=== PATIENT | female | born 1980 | race Caucasian/White ===

== ENCOUNTER 2018-05-28 19:53 | Inpatient (IN) ==
[2018-05-28] MEDS ORDERED: 0.9 % Sodium Chloride 1,000 ML IVC ONE (20:24)
[2018-05-28 20:42] LABS: Bilirubin,Urine Negative (Negative); Blood,Urine Trace (Negative); Clarity,Urine Clear (Clear); Color,Urine Yellow (Yellow); Glucose,Urine (UA) Normal (Normal); Ketones,Urine Negative (Negative); Leukocyte Esterase,Urine Negative (Negative); Nitrite,Urine Negative (Negative); Protein,Urine Negative (Neg-Trace); Specific Gravity,Urine < 1.005 (1.010-1.025); Urobilinogen,Urine Normal (Normal)
[2018-05-28 20:43] LABS: Bacteria,Urine None Seen per hpf (None-Few); Hyaline Casts,Urine None Seen per lpf (None-Few); RBC,Urine 0-3 per hpf (0-3); Squamous Epithelial Cell,Urine Moderate per lpf (None-Few); WBC,Urine 0-3 per hpf (0-3)
[2018-05-28 20:56] LABS: Amphetamine Screen,Urine Negative ng/mL (Cutoff=1000); Barbiturate Screen,Urine Negative ng/mL (Cutoff=200); Benzodiazepines Screen,Urine Positive ng/mL (Cutoff=200); Cannabinoid Screen,Urine Negative ng/mL (Cutoff = 50); Cocaine Screen,Urine Negative ng/mL (Cutoff= 300); Opiate Screen,Urine Negative ng/mL (Cutoff=300); Phencyclidine Screen,Urine Negative ng/mL (Cutoff=25)
[2018-05-28 21:05] LABS: Basophils # 0.1 K/mcL (0.0-0.2); Basophils % 0.5 %; Eosinophils # 0.2 K/mcL (0.0-0.6); Eosinophils % 1.9 %; Hematocrit 41.2 % (35.3-44.9); Hemoglobin 13.6 g/dL (11.5-15.4); Immature Granulocytes % 0.2 % (0-4); Lymphocytes # 3.5 K/mcL (0.6-4.6); Lymphocytes % 34.4 %; Mean Corpuscular Hemoglobin 29.8 pg (28.0-33.3); Mean Corpuscular Volume 90.2 fL (83.0-100.0); Mean Platelet Volume 9.2 fL (9.4-12.4); Monocytes # 0.7 K/mcL (0.0-1.3); Monocytes % 6.3 %; Neutrophils # 5.8 K/mcL (1.6-8.9); Platelet Count 342 K/mcL (140-400); Red Blood Count 4.57 M/mcL (3.82-4.97); Red Cell Distribution Width 13.4 % (11.5-14.5); Segmented Neutrophils % 56.7 %
[2018-05-28 21:22] LABS: Acetaminophen < 10 mcg/mL (10-20); BUN/Creatinine Ratio 10 (6-26); Blood Urea Nitrogen 7 mg/dL (6-20); Calcium 8.9 mg/dL (8.6-10.3); Carbon Dioxide 19 mEq/L (23-29); Chloride 109 mEq/L (98-107); Ethanol < 10 mg/dL (Less than 10); Glucose 95 mg/dL (70-105); Osmolality,Calculated 284 (280-300); Potassium 3.4 mEq/L (3.5-5.1); Salicylate < 2.5 mg/dL (15.0-30.0); Sodium 138 mEq/L (136-145); eGFR For Non-African Americans > 60 (> 60)
--- NOTE | 2018-05-28 21:29 | Emergency Department Note ---
Disposition Clinical Impression: Dehydration Depression Qualifiers: Depression Type: unspecified Qualified Code(s): F32.9 - Major depressive disorder, single episode, unspecified Disposition: Still a Patient Referrals: NONE,PCP [Primary Care Provider] - General Adult HPI - General Chief complaint: ED General Medical Stated complaint: Psych Time Seen by Provider: 05/28/18 20:05 Source: patient Limitations: no limitations - History of Present Illness Pain Scale: 0 - Related Data Home Medications Medication Instructions Recorded Confirmed LORazepam [Ativan] 1 mg PO TID PRN 07/29/16 09/23/17 Atorvastatin Calcium 80 mg PO HS 09/23/17 09/23/17 Dicyclomine [Bentyl] 20 mg PO QID PRN 09/23/17 09/23/17 Gabapentin [Neurontin] 600 mg PO TID 09/23/17 09/23/17 Omeprazole [PriLOSEC] 20 mg PO DAILY 09/23/17 09/23/17 Paroxetine HCl [Paxil] 40 mg PO DAILY 09/23/17 09/23/17 SUMAtriptan succinate [Imitrex] 25 mg PO Q2H PRN 09/23/17 09/23/17 Topiramate [Topamax] 50 mg PO HS 09/23/17 09/23/17 hydrOXYzine HCl [Hydroxyzine HCl] 25 mg PO Q6H PRN 09/23/17 09/23/17 Previous Rx's Medication Instructions Recorded Oxycodone HCl/Acetaminophen 1 each PO Q6HR PRN #12 tablet 09/23/17 [Percocet 10-325 mg Tablet] Albuterol Sulfate [Albuterol 2 puff IH Q4HR #1 unit 02/05/18 Inhaler] Allergies Allergy/AdvReac Type Severity Reaction Status Date / Time sulfamethoxazole Allergy Swelling Verified 09/23/17 07:01 [From Bactrim] of Lip/Tongue/Throat trimethoprim [From Bactrim] Allergy Swelling Verified 09/23/17 07:01 of Lip/Tongue/Throat Past Medical History - Past Medical History Medical history: Reports: GERD, hyperlipidemia, kidney stones, other Surgical history: Reports: other (tubal ligation, multiple back surgeries) Psychiatric history: Reports: anxiety, bipolar, 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 - Social History Smoking Status: Current every day smoker Smokeless Tobacco Status: No Alcohol use: Reports: rarely Drug use: Reports: none Physical Exam - General Limitations: no limitations General appearance: alert, in no apparent distress Course Vital Signs Temperature 98.3 F 05/28/18 19:57 Pulse Rate 102 05/28/18 19:57 Respiratory Rate 12 05/28/18 19:57 Blood Pressure 90/60 05/28/18 19:57 O2 Sat by Pulse Oximetry 99 05/28/18 19:57 Temperature 98.3 F 05/28/18 20:10 Pulse Rate 86 05/28/18 21:05 Respiratory Rate 16 05/28/18 21:05 Blood Pressure 100/66 05/28/18 21:05 O2 Sat by Pulse Oximetry 97 05/28/18 21:05 Oxygen Delivery Oxygen Delivery Room Air Medical Decision Making - Lab Data Result diagrams: 05/28/18 20:44 05/28/18 20:44 Lab Results 05/28/18 05/28/18 05/28/18 Range/Units 20:29 20:29 20:29 WBC (4.3-11.1) K/mcL RBC (3.82-4.97) M/mcL Hgb (11.5-15.4) g/dL Hct (35.3-44.9) % MCV (83.0-100.0) fL MCH (28.0-33.3) pg MCHC (31.6-35.5) g/dL RDW (11.5-14.5) % Plt Count (140-400) K/mcL MPV (9.4-12.4) fL Immature Gran % (0-4) % Seg Neutrophils % % Lymphocytes % % Monocytes % % Eosinophils % % Basophils % % Neutrophils # (1.6-8.9) K/mcL Lymphocytes # (0.6-4.6) K/mcL Monocytes # (0.0-1.3) K/mcL Eosinophils # (0.0-0.6) K/mcL Basophils # (0.0-0.2) K/mcL Sodium (136-145) mEq/L Potassium (3.5-5.1) mEq/L Chloride (98-107) mEq/L Carbon Dioxide (23-29) mEq/L BUN (6-20) mg/dL Creatinine (0.60-1.20) mg/dL Est GFR ( Amer) (> 60) Est GFR (Non-Af Amer) (> 60) BUN/Creatinine Ratio (6-26) Glucose (70-105) mg/dL Calculated Osmolality (280-300) Calcium (8.6-10.3) mg/dL Urine Color Yellow (Yellow) Urine Clarity Clear (Clear) Urine pH 6.0 (5.0-8.0) pH Units Ur Specific [place] < 1.005 L (1.010-1.025) Urine Protein Negative (Neg-Trace) mg/dL Urine Glucose (UA) Normal (Normal) mg/dL Urine Ketones Negative (Negative) mg/dL Urine Blood Trace H (Negative) Urine Nitrite Negative (Negative) Urine Bilirubin Negative (Negative) Urine Urobilinogen Normal (Normal) mg/dL Ur Leukocyte Esterase Negative (Negative) Urine Microscopic RBC 0-3 (0-3) per hpf Urine Microscopic WBC 0-3 (0-3) per hpf Ur Squamous Epith Cells Moderate H (None-Few) per lpf Urine Bacteria None Seen (None-Few) per hpf Hyaline Casts None Seen (None-Few) per lpf Urine Test Negative (Negative) Salicylates (15.0-30.0) mg/dL Urine Opiates Screen Negative (Kvfmgk=955) ng/mL Acetaminophen (10-20) mcg/mL Ur Barbiturates Screen Negative (Mmqzfb=699) ng/mL Ur Phencyclidine Scrn Negative (Cutoff=25) ng/mL Ur Amphetamines Screen Negative (Wkehxw=5821) ng/mL U Benzodiazepines Scrn Positive H (Tegcvb=223) ng/mL Urine Cocaine Screen Negative (Cutoff= 300) ng/mL U Marijuana (THC) Screen Negative (Cutoff = 50) ng/mL Ur Drug Screen Interp See Below Ethyl Alcohol (Less than 10) mg/dL 05/28/18 05/28/18 Range/Units 20:44 20:44 WBC 10.3 (4.3-11.1) K/mcL RBC 4.57 (3.82-4.97) M/mcL Hgb 13.6 (11.5-15.4) g/dL Hct 41.2 (35.3-44.9) % MCV 90.2 (83.0-100.0) fL MCH 29.8 (28.0-33.3) pg MCHC 33.0 (31.6-35.5) g/dL RDW 13.4 (11.5-14.5) % Plt Count 342 (140-400) K/mcL MPV 9.2 L (9.4-12.4) fL Immature Gran % 0.2 (0-4) % Seg Neutrophils % 56.7 % Lymphocytes % 34.4 % Monocytes % 6.3 % Eosinophils % 1.9 % Basophils % 0.5 % Neutrophils # 5.8 (1.6-8.9) K/mcL Lymphocytes # 3.5 (0.6-4.6) K/mcL Monocytes # 0.7 (0.0-1.3) K/mcL Eosinophils # 0.2 (0.0-0.6) K/mcL Basophils # 0.1 (0.0-0.2) K/mcL Sodium 138 (136-145) mEq/L Potassium 3.4 L (3.5-5.1) mEq/L Chloride 109 H (98-107) mEq/L Carbon Dioxide 19 L (23-29) mEq/L BUN 7 (6-20) mg/dL Creatinine 0.72 (0.60-1.20) mg/dL Est GFR ( Amer) > 60 (> 60) Est GFR (Non-Af Amer) > 60 (> 60) BUN/Creatinine Ratio 10 (6-26) Glucose 95 (70-105) mg/dL Calculated Osmolality 284 (280-300) Calcium 8.9 (8.6-10.3) mg/dL Urine Color (Yellow) Urine Clarity (Clear) Urine pH (5.0-8.0) pH Units Ur Specific [place] (1.010-1.025) Urine Protein (Neg-Trace) mg/dL Urine Glucose (UA) (Normal) mg/dL Urine Ketones (Negative) mg/dL Urine Blood (Negative) Urine Nitrite (Negative) Urine Bilirubin (Negative) Urine Urobilinogen (Normal) mg/dL Ur Leukocyte Esterase (Negative) Urine Microscopic RBC (0-3) per hpf Urine Microscopic WBC (0-3) per hpf Ur Squamous Epith Cells (None-Few) per lpf Urine Bacteria (None-Few) per hpf Hyaline Casts (None-Few) per lpf Urine Test (Negative) Salicylates < 2.5 L (15.0-30.0) mg/dL Urine Opiates Screen (Eqqevf=688) ng/mL Acetaminophen < 10 L (10-20) mcg/mL Ur Barbiturates Screen (Mdgdhi=192) ng/mL Ur Phencyclidine Scrn (Cutoff=25) ng/mL Ur Amphetamines Screen (Jucrpx=4380) ng/mL U Benzodiazepines Scrn (Xzlmip=012) ng/mL Urine Cocaine Screen (Cutoff= 300) ng/mL U Marijuana (THC) Screen (Cutoff = 50) ng/mL Ur Drug Screen Interp Ethyl Alcohol < 10 (Less than 10) mg/dL Attestation Statement - Attestation Attestation: I examined this patient and my medical decision-making was reviewed with the Resident Physician. I agree with the documented findings, disposition and treatment plan as described except to the extent set forth below. 38 year old female presents to the ED with complaints of pysch complaints and state that her daughter is SI and at home and she has been feeling increasingly more helpless and hopeless and anxious at bedside. She was intially tachycardiac and hypotensive on presentation and appears dehydrated. we have given her IV 1L and she has improved to HR of 80s and no 100/60s. She has otherwise been medically cleared and will now await pysch consult
--- NOTE | 2018-05-28 21:49 | Emergency Department Note ---
Disposition Clinical Impression: Dehydration Depression Qualifiers: Depression Type: unspecified Qualified Code(s): F32.9 - Major depressive disorder, single episode, unspecified Disposition: Still a Patient Referrals: NONE,PCP [Primary Care Provider] - Forms: ED Satisfaction Letter, Work/School Release Psych HPI - General Chief Complaint: ED General Medical Stated Complaint: Psych Time Seen by Provider: 05/28/18 20:05 Source: patient Mode of arrival: ambulatory Limitations: no limitations Nursing Notes Reviewed: Yes Vital Signs Reviewed: Yes - History of Present Illness HPI Narrative: 38-year-old female history depression presents emergency department with anxiety and depression. She presents after her daughter voice to her that she wanted to hurt herself. The patient sees a psychiatrist in her antidepressant medication was recently discontinued 2 weeks ago. She feels very depressed and like the world is caving in on her. She feels like she does not care for anything. She denies any suicidal or homicidal ideation at this time. She feels very stressed in regards to her daughter be bullied is currently being evaluated here today. Her son is also had a traumatic event where he was involved in a car accident and other passengers in his car . Her has not been supportive as he is a railroad car truck builder and she feels like she has to do this all by herself. She has been taken lorazepam as prescribed to her for her anxiety which she feels is not helping. She denies any drug ingestion or intention to harm herself for overdose. She denies any other drug use or alcohol use. She recalls being evaluated by one a psychiatry in the past but is unsure if she has ever been admitted. She otherwise denies any complaints such as chest pain, shortness of breath, headache or recent illness. Pt complaint: feels depressed - Related Data Home Medications Medication Instructions Recorded Confirmed LORazepam [Ativan] 1 mg PO TID PRN 07/29/16 09/23/17 Atorvastatin Calcium 80 mg PO HS 09/23/17 09/23/17 Dicyclomine [Bentyl] 20 mg PO QID PRN 09/23/17 09/23/17 Gabapentin [Neurontin] 600 mg PO TID 09/23/17 09/23/17 Omeprazole [PriLOSEC] 20 mg PO DAILY 09/23/17 09/23/17 Paroxetine HCl [Paxil] 40 mg PO DAILY 09/23/17 09/23/17 SUMAtriptan succinate [Imitrex] 25 mg PO Q2H PRN 09/23/17 09/23/17 Topiramate [Topamax] 50 mg PO HS 09/23/17 09/23/17 hydrOXYzine HCl [Hydroxyzine HCl] 25 mg PO Q6H PRN 09/23/17 09/23/17 Previous Rx's Medication Instructions Recorded Oxycodone HCl/Acetaminophen 1 each PO Q6HR PRN #12 tablet 09/23/17 [Percocet 10-325 mg Tablet] Albuterol Sulfate [Albuterol 2 puff IH Q4HR #1 unit 02/05/18 Inhaler] Allergies Allergy/AdvReac Type Severity Reaction Status Date / Time sulfamethoxazole Allergy Swelling Verified 09/23/17 07:01 [From Bactrim] of Lip/Tongue/Throat trimethoprim [From Bactrim] Allergy Swelling Verified 09/23/17 07:01 of Lip/Tongue/Throat All systems ED: reviewed and negative except as stated. Review of Systems: As Per HPI Constitutional: Denies: fever, chills, weakness Cardiovascular: Denies: chest pain Respiratory: Denies: dyspnea Gastrointestinal: Denies: abdominal pain Genitourinary: Denies: dysuria Musculoskeletal: Denies: back pain Integumentary: Denies: rash, abrasion Neurological: Denies: headache Psychiatric: Reports: anxiety, depression. Denies: suicidal thoughts, homicidal thoughts, auditory hallucinations, visual hallucinations Past Medical History - Past Medical History Attestation: Yes The following information was validated with the patient. 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 - Social History Smoking Status: Current every day smoker Smokeless Tobacco Status: No Alcohol use: Reports: rarely Drug use: Reports: none Physical Exam - General Limitations: no limitations General appearance: alert, anxious, other (Very tearful during examination and history taking) - Head Head exam: atraumatic, normocephalic, normal inspection - Eye Eye exam: Present: normal appearance, PERRL, EOMI - ENT ENT exam: normal exam, normal oropharynx, mucous membranes moist - Neck Neck exam: Present: normal inspection, full ROM, trachea midline - Chest Chest inspection: Present: normal inspection, symmetric chest wall rise. Absent : tenderness - Respiratory Respiratory exam: Present: normal lung sounds bilaterally. Absent: respiratory distress, wheezes - Cardiovascular Cardiovascular exam: Present: regular rate, normal rhythm, normal heart sounds - Abdominal Exam Abdominal exam: Present: soft, Non-Tender, normal bowel sounds. Absent: tenderness, distention, guarding, rebound, rigidity - Extremities Exam Extremities exam: Present: normal inspection, full ROM. Absent: tenderness, pedal edema - Back Exam Back exam: Present: normal inspection, full ROM. Absent: tenderness - Neurological Exam Neurological exam: Present: alert, oriented X3, normal gait - Psychiatric Psychiatric exam: Present: depressed, anxious. Absent: homicidal ideation, suicidal ideation - Skin Skin exam: Present: warm, dry, intact, normal color. Absent: rash, cyanosis, diaphoresis Course Course Narrative: Patients very tearful and depressed on examination. She slightly hypotensive and will receive some fluids. EKG did not reveal any ischemic findings. She denies any suicidal or homicidal ideation. She is requesting psychiatric evaluation. Will obtain medical clearance and have her evaluated. - Reevaluation(s) Reevaluation #1: Patient will be evaluated by psychiatry as she is medically cleared. Positive for benzodiazepine. Patient will be signed out to nighttime physician Dr. Zarate and Dr. Spencer. Please see their note for final disposition placement. Impression is depression and dehydration. Vital Signs Temperature 98.3 F 05/28/18 19:57 Pulse Rate 102 05/28/18 19:57 Respiratory Rate 12 05/28/18 19:57 Blood Pressure 90/60 05/28/18 19:57 O2 Sat by Pulse Oximetry 99 05/28/18 19:57 Temperature 98.3 F 05/28/18 20:10 Pulse Rate 86 05/28/18 21:05 Respiratory Rate 16 05/28/18 21:05 Blood Pressure 100/66 05/28/18 21:05 O2 Sat by Pulse Oximetry 97 05/28/18 21:05 Oxygen Delivery Oxygen Delivery Room Air Psych - MDM Narrative Medical decision making narrative: Patient was discussed with my attending physician who agrees with ED management and final disposition. They independently evaluated the patient. Please refer to their attestation to this encounter for additional information. This note was generated by Dragon voice recognition software and as a result grammatical or spelling errors may occur using this program. - Medical Records Medical records reviewed: Yes I reviewed the patient's medical records. - Lab Data Lab results reviewed: Yes I reviewed the patient's lab results. Result diagrams: 05/28/18 20:44 05/28/18 20:44 Lab Results 05/28/18 05/28/18 05/28/18 Range/Units 20:29 20:29 20:29 WBC (4.3-11.1) K/mcL RBC (3.82-4.97) M/mcL Hgb (11.5-15.4) g/dL Hct (35.3-44.9) % MCV (83.0-100.0) fL MCH (28.0-33.3) pg MCHC (31.6-35.5) g/dL RDW (11.5-14.5) % Plt Count (140-400) K/mcL MPV (9.4-12.4) fL Immature Gran % (0-4) % Seg Neutrophils % % Lymphocytes % % Monocytes % % Eosinophils % % Basophils % % Neutrophils # (1.6-8.9) K/mcL Lymphocytes # (0.6-4.6) K/mcL Monocytes # (0.0-1.3) K/mcL Eosinophils # (0.0-0.6) K/mcL Basophils # (0.0-0.2) K/mcL Sodium (136-145) mEq/L Potassium (3.5-5.1) mEq/L Chloride (98-107) mEq/L Carbon Dioxide (23-29) mEq/L BUN (6-20) mg/dL Creatinine (0.60-1.20) mg/dL Est GFR ( Amer) (> 60) Est GFR (Non-Af Amer) (> 60) BUN/Creatinine Ratio (6-26) Glucose (70-105) mg/dL Calculated Osmolality (280-300) Calcium (8.6-10.3) mg/dL Urine Color Yellow (Yellow) Urine Clarity Clear (Clear) Urine pH 6.0 (5.0-8.0) pH Units Ur Specific [place] < 1.005 L (1.010-1.025) Urine Protein Negative (Neg-Trace) mg/dL Urine Glucose (UA) Normal (Normal) mg/dL Urine Ketones Negative (Negative) mg/dL Urine Blood Trace H (Negative) Urine Nitrite Negative (Negative) Urine Bilirubin Negative (Negative) Urine Urobilinogen Normal (Normal) mg/dL Ur Leukocyte Esterase Negative (Negative) Urine Microscopic RBC 0-3 (0-3) per hpf Urine Microscopic WBC 0-3 (0-3) per hpf Ur Squamous Epith Cells Moderate H (None-Few) per lpf Urine Bacteria None Seen (None-Few) per hpf Hyaline Casts None Seen (None-Few) per lpf Urine Test Negative (Negative) Salicylates (15.0-30.0) mg/dL Urine Opiates Screen Negative (Hkyyvd=115) ng/mL Acetaminophen (10-20) mcg/mL Ur Barbiturates Screen Negative (Vrhlyt=347) ng/mL Ur Phencyclidine Scrn Negative (Cutoff=25) ng/mL Ur Amphetamines Screen Negative (Enhbbo=5286) ng/mL U Benzodiazepines Scrn Positive H ([place]=259) ng/mL Urine Cocaine Screen Negative (Cutoff= 300) ng/mL U Marijuana (THC) Screen Negative (Cutoff = 50) ng/mL Ur Drug Screen Interp See Below Ethyl Alcohol (Less than 10) mg/dL 05/28/18 05/28/18 Range/Units 20:44 20:44 WBC 10.3 (4.3-11.1) K/mcL RBC 4.57 (3.82-4.97) M/mcL Hgb 13.6 (11.5-15.4) g/dL Hct 41.2 (35.3-44.9) % MCV 90.2 (83.0-100.0) fL MCH 29.8 (28.0-33.3) pg MCHC 33.0 (31.6-35.5) g/dL RDW 13.4 (11.5-14.5) % Plt Count 342 (140-400) K/mcL MPV 9.2 L (9.4-12.4) fL Immature Gran % 0.2 (0-4) % Seg Neutrophils % 56.7 % Lymphocytes % 34.4 % Monocytes % 6.3 % Eosinophils % 1.9 % Basophils % 0.5 % Neutrophils # 5.8 (1.6-8.9) K/mcL Lymphocytes # 3.5 (0.6-4.6) K/mcL Monocytes # 0.7 (0.0-1.3) K/mcL Eosinophils # 0.2 (0.0-0.6) K/mcL Basophils # 0.1 (0.0-0.2) K/mcL Sodium 138 (136-145) mEq/L Potassium 3.4 L (3.5-5.1) mEq/L Chloride 109 H (98-107) mEq/L Carbon Dioxide 19 L (23-29) mEq/L BUN 7 (6-20) mg/dL Creatinine 0.72 (0.60-1.20) mg/dL Est GFR ( Amer) > 60 (> 60) Est GFR (Non-Af Amer) > 60 (> 60) BUN/Creatinine Ratio 10 (6-26) Glucose 95 (70-105) mg/dL Calculated Osmolality 284 (280-300) Calcium 8.9 (8.6-10.3) mg/dL Urine Color (Yellow) Urine Clarity (Clear) Urine pH (5.0-8.0) pH Units Ur Specific [place] (1.010-1.025) Urine Protein (Neg-Trace) mg/dL Urine Glucose (UA) (Normal) mg/dL Urine Ketones (Negative) mg/dL Urine Blood (Negative) Urine Nitrite (Negative) Urine Bilirubin (Negative) Urine Urobilinogen (Normal) mg/dL Ur Leukocyte Esterase (Negative) Urine Microscopic RBC (0-3) per hpf Urine Microscopic WBC (0-3) per hpf Ur Squamous Epith Cells (None-Few) per lpf Urine Bacteria (None-Few) per hpf Hyaline Casts (None-Few) per lpf Urine Test (Negative) Salicylates < 2.5 L (15.0-30.0) mg/dL Urine Opiates Screen (Cknmjz=057) ng/mL Acetaminophen < 10 L (10-20) mcg/mL Ur Barbiturates Screen (Wqrcqt=705) ng/mL Ur Phencyclidine Scrn (Cutoff=25) ng/mL Ur Amphetamines Screen (Kcqmwp=4019) ng/mL U Benzodiazepines Scrn (Snlxnf=987) ng/mL Urine Cocaine Screen (Cutoff= 300) ng/mL U Marijuana (THC) Screen (Cutoff = 50) ng/mL Ur Drug Screen Interp Ethyl Alcohol < 10 (Less than 10) mg/dL - Radiology Data Radiology results reviewed: Yes I reviewed the patient's radiology results. Chest X-Ray 05/28/18 20:30 IMPRESSION: No radiographic evidence for acute cardiopulmonary disease process. D/ / Alpesh Maya / Alpesh Maya Interpreting Provider: Alpesh Maya Psychiatric Medical Clearance - Medical Clearance Checklist Medical History: No Social History Section defined Current Vitals: Last Vital Signs Temp 98.3 F 05/28/18 20:10 Pulse 86 05/28/18 21:05 Resp 16 05/28/18 21:05 BP 100/66 05/28/18 21:05 Pulse Ox 97 05/28/18 21:05 Psychiatric Lab Panel: Drug Levels and Toxicity 05/28/18 05/28/18 20:29 20:44 Urine Opiates Screen Negative Acetaminophen < 10 L Ur Barbiturates Screen Negative Ur Phencyclidine Scrn Negative Ur Amphetamines Screen Negative U Benzodiazepines Scrn Positive H Urine Cocaine Screen Negative U Marijuana (THC) Screen Negative Ethyl Alcohol < 10 Abnormal Labs: Abnormal lab results MPV 9.2 fL (9.4-12.4) L 05/28/18 20:44 Potassium 3.4 mEq/L (3.5-5.1) L 05/28/18 20:44 Chloride 109 mEq/L (98-107) H 05/28/18 20:44 Carbon Dioxide 19 mEq/L (23-29) L 05/28/18 20:44 Ur Specific [place] < 1.005 (1.010-1.025) L 05/28/18 20:29 Urine Blood Trace (Negative) H 05/28/18 20:29 Ur Squamous Epith Cells Moderate per lpf (None-Few) H 05/28/18 20:29 Salicylates < 2.5 mg/dL (15.0-30.0) L 05/28/18 20:44 Acetaminophen < 10 mcg/mL (10-20) L 05/28/18 20:44 U Benzodiazepines Scrn Positive ng/mL (Xreixi=160) H 05/28/18 20:29 Statement of Medical Clearance: I have evaluated the patient, reviewed diagnostic information, and certify that the patient's medical condition is sufficiently stable that transfer to the psychiatric unit does not pose a significant risk of deterioration. [place] Situation: Demographics, MOA Background: Presenting Complaint, Relevant PMH, Meds, & Allergies Assessment: Vital Signs, Course and respsone to treatment, Exam Concerns, Patient/Family Expectation, Pertinant Lab Results, Outstanding Labs Recommendation: Barrier(s) to disposition, Recommendation based on pending studies, treatments, or consults S.B.A.Christina Report Given to: Dr. Zarate and Johanna Byrd Repor Time: 01:00
--- NOTE | 2018-05-29 02:56 | Emergency Department Note ---
Disposition Clinical Impression: Dehydration Depression Qualifiers: Depression Type: unspecified Qualified Code(s): F32.9 - Major depressive disorder, single episode, unspecified Disposition: Still a Patient Referrals: NONE,PCP [Primary Care Provider] - Forms: ED Satisfaction Letter, Work/School Release General Adult HPI - General Chief complaint: ED General Medical Stated complaint: Psych Time Seen by Provider: 05/28/18 20:05 Source: patient Mode of arrival: ambulatory Limitations: no limitations - History of Present Illness Pain Scale: 0 - Related Data Home Medications Medication Instructions Recorded Confirmed LORazepam [Ativan] 1 mg PO TID PRN 07/29/16 09/23/17 Atorvastatin Calcium 80 mg PO HS 09/23/17 09/23/17 Dicyclomine [Bentyl] 20 mg PO QID PRN 09/23/17 09/23/17 Gabapentin [Neurontin] 600 mg PO TID 09/23/17 09/23/17 Omeprazole [PriLOSEC] 20 mg PO DAILY 09/23/17 09/23/17 Paroxetine HCl [Paxil] 40 mg PO DAILY 09/23/17 09/23/17 SUMAtriptan succinate [Imitrex] 25 mg PO Q2H PRN 09/23/17 09/23/17 Topiramate [Topamax] 50 mg PO HS 09/23/17 09/23/17 hydrOXYzine HCl [Hydroxyzine HCl] 25 mg PO Q6H PRN 09/23/17 09/23/17 Previous Rx's Medication Instructions Recorded Oxycodone HCl/Acetaminophen 1 each PO Q6HR PRN #12 tablet 09/23/17 [Percocet 10-325 mg Tablet] Albuterol Sulfate [Albuterol 2 puff IH Q4HR #1 unit 02/05/18 Inhaler] Allergies Allergy/AdvReac Type Severity Reaction Status Date / Time sulfamethoxazole Allergy Swelling Verified 09/23/17 07:01 [From Bactrim] of Lip/Tongue/Throat trimethoprim [From Bactrim] Allergy Swelling Verified 09/23/17 07:01 of Lip/Tongue/Throat Constitutional: Denies: fever, chills, weakness Cardiovascular: Denies: chest pain Respiratory: Denies: dyspnea Gastrointestinal: Denies: abdominal pain Genitourinary: Denies: dysuria Musculoskeletal: Denies: back pain Integumentary: Denies: rash, abrasion Neurological: Denies: headache Psychiatric: Reports: anxiety, depression. Denies: suicidal thoughts, homicidal thoughts, auditory hallucinations, visual hallucinations Past Medical History - Past Medical History Medical history: Reports: GERD, hyperlipidemia, kidney stones, other Surgical history: Reports: other (tubal ligation, multiple back surgeries) Psychiatric history: Reports: anxiety, bipolar, depression [employer] history: Reports: bilateral tubal ligation - Social History Smoking Status: Current every day smoker Smokeless Tobacco Status: No Alcohol use: Reports: rarely Drug use: Reports: none Physical Exam - General Limitations: no limitations General appearance: alert, anxious, other (Very tearful during examination and history taking) Course - Reevaluation(s) Reevaluation #1: Patient signed out pending Ia disposition. Patient admitted to Ia. Time: 02:56 Vital Signs Temperature 98.3 F 05/28/18 19:57 Pulse Rate 102 05/28/18 19:57 Respiratory Rate 12 05/28/18 19:57 Blood Pressure 90/60 05/28/18 19:57 O2 Sat by Pulse Oximetry 99 05/28/18 19:57 Temperature 98.3 F 05/28/18 20:10 Pulse Rate 86 05/28/18 21:05 Respiratory Rate 16 05/28/18 21:05 Blood Pressure 100/66 05/28/18 21:05 O2 Sat by Pulse Oximetry 97 05/28/18 21:05 Oxygen Delivery Oxygen Delivery Room Air Medical Decision Making - Lab Data Result diagrams: 05/28/18 20:44 05/28/18 20:44 Lab Results 05/28/18 05/28/18 05/28/18 Range/Units 20:29 20:29 20:29 WBC (4.3-11.1) K/mcL RBC (3.82-4.97) M/mcL Hgb (11.5-15.4) g/dL Hct (35.3-44.9) % MCV (83.0-100.0) fL MCH (28.0-33.3) pg MCHC (31.6-35.5) g/dL RDW (11.5-14.5) % Plt Count (140-400) K/mcL MPV (9.4-12.4) fL Immature Gran % (0-4) % Seg Neutrophils % % Lymphocytes % % Monocytes % % Eosinophils % % Basophils % % Neutrophils # (1.6-8.9) K/mcL Lymphocytes # (0.6-4.6) K/mcL Monocytes # (0.0-1.3) K/mcL Eosinophils # (0.0-0.6) K/mcL Basophils # (0.0-0.2) K/mcL Sodium (136-145) mEq/L Potassium (3.5-5.1) mEq/L Chloride (98-107) mEq/L Carbon Dioxide (23-29) mEq/L BUN (6-20) mg/dL Creatinine (0.60-1.20) mg/dL Est GFR ( Amer) (> 60) Est GFR (Non-Af Amer) (> 60) BUN/Creatinine Ratio (6-26) Glucose (70-105) mg/dL Calculated Osmolality (280-300) Calcium (8.6-10.3) mg/dL Urine Color Yellow (Yellow) Urine Clarity Clear (Clear) Urine pH 6.0 (5.0-8.0) pH Units Ur Specific [place] < 1.005 L (1.010-1.025) Urine Protein Negative (Neg-Trace) mg/dL Urine Glucose (UA) Normal (Normal) mg/dL Urine Ketones Negative (Negative) mg/dL Urine Blood Trace H (Negative) Urine Nitrite Negative (Negative) Urine Bilirubin Negative (Negative) Urine Urobilinogen Normal (Normal) mg/dL Ur Leukocyte Esterase Negative (Negative) Urine Microscopic RBC 0-3 (0-3) per hpf Urine Microscopic WBC 0-3 (0-3) per hpf Ur Squamous Epith Cells Moderate H (None-Few) per lpf Urine Bacteria None Seen (None-Few) per hpf Hyaline Casts None Seen (None-Few) per lpf Urine Test Negative (Negative) Salicylates (15.0-30.0) mg/dL Urine Opiates Screen Negative (Nzqbfe=079) ng/mL Acetaminophen (10-20) mcg/mL Ur Barbiturates Screen Negative (Izxrnk=498) ng/mL Ur Phencyclidine Scrn Negative (Cutoff=25) ng/mL Ur Amphetamines Screen Negative (Tqgrsl=8920) ng/mL U Benzodiazepines Scrn Positive H (Rsedfr=869) ng/mL Urine Cocaine Screen Negative (Cutoff= 300) ng/mL U Marijuana (THC) Screen Negative (Cutoff = 50) ng/mL Ur Drug Screen Interp See Below Ethyl Alcohol (Less than 10) mg/dL 05/28/18 05/28/18 Range/Units 20:44 20:44 WBC 10.3 (4.3-11.1) K/mcL RBC 4.57 (3.82-4.97) M/mcL Hgb 13.6 (11.5-15.4) g/dL Hct 41.2 (35.3-44.9) % MCV 90.2 (83.0-100.0) fL MCH 29.8 (28.0-33.3) pg MCHC 33.0 (31.6-35.5) g/dL RDW 13.4 (11.5-14.5) % Plt Count 342 (140-400) K/mcL MPV 9.2 L (9.4-12.4) fL Immature Gran % 0.2 (0-4) % Seg Neutrophils % 56.7 % Lymphocytes % 34.4 % Monocytes % 6.3 % Eosinophils % 1.9 % Basophils % 0.5 % Neutrophils # 5.8 (1.6-8.9) K/mcL Lymphocytes # 3.5 (0.6-4.6) K/mcL Monocytes # 0.7 (0.0-1.3) K/mcL Eosinophils # 0.2 (0.0-0.6) K/mcL Basophils # 0.1 (0.0-0.2) K/mcL Sodium 138 (136-145) mEq/L Potassium 3.4 L (3.5-5.1) mEq/L Chloride 109 H (98-107) mEq/L Carbon Dioxide 19 L (23-29) mEq/L BUN 7 (6-20) mg/dL Creatinine 0.72 (0.60-1.20) mg/dL Est GFR ( Amer) > 60 (> 60) Est GFR (Non-Af Amer) > 60 (> 60) BUN/Creatinine Ratio 10 (6-26) Glucose 95 (70-105) mg/dL Calculated Osmolality 284 (280-300) Calcium 8.9 (8.6-10.3) mg/dL Urine Color (Yellow) Urine Clarity (Clear) Urine pH (5.0-8.0) pH Units Ur Specific [place] (1.010-1.025) Urine Protein (Neg-Trace) mg/dL Urine Glucose (UA) (Normal) mg/dL Urine Ketones (Negative) mg/dL Urine Blood (Negative) Urine Nitrite (Negative) Urine Bilirubin (Negative) Urine Urobilinogen (Normal) mg/dL Ur Leukocyte Esterase (Negative) Urine Microscopic RBC (0-3) per hpf Urine Microscopic WBC (0-3) per hpf Ur Squamous Epith Cells (None-Few) per lpf Urine Bacteria (None-Few) per hpf Hyaline Casts (None-Few) per lpf Urine Test (Negative) Salicylates < 2.5 L (15.0-30.0) mg/dL Urine Opiates Screen (Wsjzuw=274) ng/mL Acetaminophen < 10 L (10-20) mcg/mL Ur Barbiturates Screen (Cmsssd=336) ng/mL Ur Phencyclidine Scrn (Cutoff=25) ng/mL Ur Amphetamines Screen (Canonb=9889) ng/mL U Benzodiazepines Scrn (Ansrcr=129) ng/mL Urine Cocaine Screen (Cutoff= 300) ng/mL U Marijuana (THC) Screen (Cutoff = 50) ng/mL Ur Drug Screen Interp Ethyl Alcohol < 10 (Less than 10) mg/dL
[2018-05-29] MEDS ORDERED: MOM Conc 10 ML UD.LIQ PO PRN (03:19)
[2018-05-29] MEDS ORDERED: *HR* LORazepam 2 MG/ML VIAL IM PRN (03:19)
[2018-05-29] MEDS ORDERED: Mag Hydrox/Al Hydrox/Simeth 30 ML UDC PO PRN (03:19)
[2018-05-29] MEDS ORDERED: Haloperidol Lactate 5 MG/ML VIAL IM PRN (03:19)
[2018-05-29] MEDS ORDERED: hydrOXYzine pamoate 25 MG CAPSULE PO PRN (03:19)
[2018-05-29] MEDS: Acetaminophen 325 MG TABLET PO PRN ×2 (09:15→16:09)
--- NOTE | 2018-05-29 12:02 | Psychiatry History & Physical ---
Date of Encounter: 05/29/18 Time of Encounter: 11:25 History of Present Illness Patient Stated Chief Complaint: i just donot care Medicare Admission Attestation: For traditional Medicare patients the provided hospital inpatient services are reasonable and necessary and in the case of services not specified as inpatient -only under 42 CFR 419.22 (n), that they are appropriately provided as inpatient services in accordance 42 CFR 412.3. For Critical Access Hospital the patient may reasonably be expected to be discharged or transferred to a hospital within 96 hours after admission to the Critical Access Hospital. Admitted From: Emergency Dept Plans for Post Hospital Care: Home History of Present Illness: Ms. Walsh is a 38 year old female was evaluated today she was admitted from ED , she has h/o depression and anxiety and has seen Dr Carias then her PCP Dr Harris gave her same medication . she came to ED with her 11 year old who cut self and suicidal , Patient also expressed thoughts of not living and psych consult was called . At present she has no desire to live , if someone shoots her to hurt her she is fine with it , she wakes up in morning wishing she is , she states i love my children but i am trying hard not to chock my 15 year old son , he knows what buttons to push, I will never do it but i have the thoughts. She is at present tearful,overwhelmed ,frustrated, hopeless, depress and crying most of the session, feels every thing around her is wrong, "I can not explain" she is not sleeping has been tried on different medication ,she also has tried several medication for anxiety , she is now on taper of ativan as she missed her appointment for pill count said my son was having surgery , i told them can come tomorrow they refused. so now on 1 mg bid , she has no substance use history. she denies any psychosis, samuel , but is significantly depress, hopeless, no desire to live , h/o od as per her few months ago and vomitted out no help seeked at that time. SHe at present will benfit from inpatient , stabilization as very depress, no desire to live , thoughts of chocking her son . she will need medication adjustment and stabilization. Past Med Surg Social Fam HX - Past Medical History Medical history: asthma, GERD, hyperlipidemia, migraine, other (no teeth as all broke off secondary to calcium deficiency after her 11 yrs ago.) - Past Psychiatric History Psychiatric history: Reports: anxiety, depression Family psychiatric history: Yes (father had nervous breakdown) Family History of Suicide: None - Past Surgical History Surgical History: other - Social History Smoking Status: Current every day smoker Smokeless Tobacco Status: No Alcohol use: rarely Drug use: none Occupational status: unemployed Current living situation: Home, With Family Activity Level: Independent ambulation Recent Out of Country Travel Within the Last 8 Weeks: No Exposure or Possible Exposure to Illness During Travel: No - Family History Mother Hx Family Cardiac Disorders: Yes Father Hx Family Cancer: Yes (prostate) Medications & Allergies LORazepam [Ativan] 1 mg PO TID PRN 07/29/16 [History] Atorvastatin Calcium 80 mg PO HS 09/23/17 [History] Dicyclomine [Bentyl] 20 mg PO QID PRN 09/23/17 [History] Gabapentin [Neurontin] 600 mg PO TID 09/23/17 [History] Omeprazole [PriLOSEC] 20 mg PO DAILY 09/23/17 [History] Paroxetine HCl [Paxil] 40 mg PO DAILY 09/23/17 [History] SUMAtriptan succinate [Imitrex] 25 mg PO Q2H PRN 09/23/17 [History] Topiramate [Topamax] 50 mg PO HS 09/23/17 [History] Albuterol Sulfate [Albuterol Inhaler] 2 puff IH Q4HR #1 unit 02/05/18 [Rx] Naltrexone HCl/Bupropion HCl [Contrave ER 8-90 mg Tablet] 1 tab PO TID 05/29/18 [History] hydrOXYzine pamoate [HydrOXYzine Pamoate] 25 mg PO QID PRN 05/29/18 [History] traZODone [TraZODone] 50 mg PO HS 05/29/18 [History] 3 Allergy/AdvReac Type Severity Reaction Status Date / Time sulfamethoxazole Allergy Swelling Verified 09/23/17 07:01 [From Bactrim] of Lip/Tongue/Throat trimethoprim [From Bactrim] Allergy Swelling Verified 09/23/17 07:01 of Lip/Tongue/Throat Review of Systems Constitutional: Denies: fever, chills, weakness, weight change Eyes: Denies: eye pain, vision change Ears, Nose, Throat: Denies: ear pain, throat pain, dental pain, hearing loss, congestion Cardiovascular: Denies: chest pain, palpitations, dyspnea on exertion Respiratory: Denies: cough, dyspnea, wheezes Gastrointestinal: Denies: abdominal pain, nausea, vomiting, diarrhea, constipation Genitourinary female: Denies: urgency, dysuria, frequency, abnormal menses, dyspareunia Musculoskeletal: Denies: joint swelling, joint pain Integumentary: Denies: rash, lesions, pruritus Neurological: Denies: headache, weakness, numbness, memory loss Psychiatric: Reports: depression, anxiety, abnormal sleep pattern, suicidal ideation, hopelessness, irritability, mood swings, panic attacks Endocrine: Denies: fatigue, heat or cold intolerance Hematologic/Lymphatic: Denies: easy bruising, lymphadenopathy Allergic/Immunologic: Denies: urticaria, itchy eyes Exam - HEENT Head exam IM: Present: atraumatic Eye exam IM: Present: EOMI, normal appearance, PERRL ENT exam IM: Present: normal exam - Neurological Neurological exam: Present: CN II-XII intact - Respiratory Respiratory exam IM: Present: CTAB - GI/Abdominal GI/Abdominal exam IM: Present: normal bowel sounds, soft. Absent: tenderness - Extremities Extremities exam IM: Present: full ROM - Skin Skin exam IM: Present: dry, warm - Constitutional Vitals: Temp Pulse Resp BP Pulse Ox 97.5 F L 99 16 120/82 97 05/29/18 09:00 05/29/18 09:00 05/29/18 09:00 05/29/18 09:00 05/28/18 21:05 General appearance: age & developmentally appropriate - Musculoskeletal Gait: normal Station: other Strength & Tone: normal for patient - Psychiatric Patient Orientation: Yes Person, Yes Time, Yes Place Level of alertness: Alert Behavior: cooperative, tearful, withdrawn Psychomotor activity: Slowed Eye Contact: Minimal Contact Mood Description: Depressed, Anxious Affect description: tearful, dysphoric Speech Volume: Normal Speech pattern: coherent Language & Vocabulary: consistent with education Thought Process: Intact Thought Content: Yes Suicidal ideation, Yes Preoccupation, Yes Guilt Perceptual Disturbances: No Auditory hallucinations, No Visual hallucinations Attention Span Ability: Capable of Focused Attention Memory Description: Grossly Intact Patient Reliability: Reliable Historian Fund of knowledge: Yes average Intelligence Estimate: Average Judgment: Limited Insight: Partial Results - Labs Labs: Laboratory Last Values WBC 10.3 K/mcL (4.3-11.1) 05/28/18 20:44 RBC 4.57 M/mcL (3.82-4.97) 05/28/18 20:44 Hgb 13.6 g/dL (11.5-15.4) 05/28/18 20:44 Hct 41.2 % (35.3-44.9) 05/28/18 20:44 MCV 90.2 fL (83.0-100.0) 05/28/18 20:44 MCH 29.8 pg (28.0-33.3) 05/28/18 20:44 MCHC 33.0 g/dL (31.6-35.5) 05/28/18 20:44 RDW 13.4 % (11.5-14.5) 05/28/18 20:44 Plt Count 342 K/mcL (140-400) 05/28/18 20:44 MPV 9.2 fL (9.4-12.4) L 05/28/18 20:44 Immature Gran % 0.2 % (0-4) 05/28/18 20:44 Seg Neutrophils % 56.7 % 05/28/18 20:44 Lymphocytes % 34.4 % 05/28/18 20:44 Monocytes % 6.3 % 05/28/18 20:44 Eosinophils % 1.9 % 05/28/18 20:44 Basophils % 0.5 % 05/28/18 20:44 Neutrophils # 5.8 K/mcL (1.6-8.9) 05/28/18 20:44 Lymphocytes # 3.5 K/mcL (0.6-4.6) 05/28/18 20:44 Monocytes # 0.7 K/mcL (0.0-1.3) 05/28/18 20:44 Eosinophils # 0.2 K/mcL (0.0-0.6) 05/28/18 20:44 Basophils # 0.1 K/mcL (0.0-0.2) 05/28/18 20:44 Sodium 138 mEq/L (136-145) 05/28/18 20:44 Potassium 3.4 mEq/L (3.5-5.1) L 05/28/18 20:44 Chloride 109 mEq/L (98-107) H 05/28/18 20: Carbon Dioxide 19 mEq/L (23-29) L 05/28/18 20:44 BUN 7 mg/dL (6-20) 05/28/18: Creatinine 0.72 mg/dL (0.60-1.20) 05/28/18 20:44 Est GFR ( Amer) > 60 (> 60) 05/28/18 20: Est GFR (Non-Af Amer) > 60 (> 60) 05/28/18 20:44 BUN/Creatinine Ratio 10 (6-26) 05/28/18:44 Glucose 95 mg/dL (70-105) 05/28/18: Calculated Osmolality 284 (280-300) 05/28/18: Calcium 8.9 mg/dL (8.6-10.3) 05/28/18: Urine Color Yellow (Yellow) 05/28/18 20: Urine Clarity Clear (Clear) 05/28/18: Urine pH 6.0 pH Units (5.0-8.0) 05/28/18 20: Ur Specific [place] < 1.005 (1.010-1.025) L 05/28/18 20: Urine Protein Negative mg/dL (Neg-Trace) 05/28/18: Urine Glucose (UA) Normal mg/dL (Normal) 05/28/18 20: Urine Ketones Negative mg/dL (Negative) 05/28/18 20:29 Urine Blood Trace (Negative) H 05/28/18 20: Urine Nitrite Negative (Negative) 05/28/18: Urine Bilirubin Negative (Negative) 05/28/18 20: Urine Urobilinogen Normal mg/dL (Normal) 05/28/18 20: Ur Leukocyte Esterase Negative (Negative) 05/28/18 20:29 Urine Microscopic RBC 0-3 per hpf (0-3) 05/28/18 20: Urine Microscopic WBC 0-3 per hpf (0-3) 05/28/18 20:29 Ur Squamous Epith Cells Moderate per lpf (None-Few) H 05/28/18 20:29 Urine Bacteria None Seen per hpf (None-Few) 05/28/18 20: Hyaline Casts None Seen per lpf (None-Few) 05/28/18 20:29 Urine Test Negative (Negative) 05/28/18 20:29 Salicylates < 2.5 mg/dL (15.0-30.0) L 05/28/18 20:44 Urine Opiates Screen Negative ng/mL (Pyvjmf=683) 05/28/18 20:29 Acetaminophen < 10 mcg/mL (10-20) L 05/28/18 20:44 Ur Barbiturates Screen Negative ng/mL (Taexto=665) 05/28/18 20:29 Ur Phencyclidine Scrn Negative ng/mL (Cutoff=25) 05/28/18 20:29 Ur Amphetamines Screen Negative ng/mL (Putyej=3017) 05/28/18 20:29 U Benzodiazepines Scrn Positive ng/mL (Pjarjg=916) H 05/28/18 20:29 Urine Cocaine Screen Negative ng/mL (Cutoff= 300) 05/28/18 20:29 U Marijuana (THC) Screen Negative ng/mL (Cutoff = 50) 05/28/18 20:29 Ur Drug Screen Interp See Below 05/28/18 20:29 Ethyl Alcohol < 10 mg/dL (Less than 10) 05/28/18 20:44 Assessment and Plan (1) Major depress dis, severe Current visit: Yes Status: Acute Plan: Admit inpatient for safety and stabilization, Close observation, Suicide Precautions per unit protocol, Encourage participation in unit milieu, Group Therapy, Monitor sleep, Monitor appetite, Secure weapons, Family/Supportive other meeting Risks, benefits, side effects, alternatives discussed w/pt: Yes Patient agreeable to treatment: Yes Plans for Post Hospital Care: at Home (2) Generalized anxiety disorder Current visit: Yes Status: Acute Plan: Admit inpatient for safety and stabilization, Close observation, Suicide Precautions per unit protocol, Encourage participation in unit milieu, Group Therapy, Monitor sleep, Family/Supportive other meeting Risks, benefits, side effects, alternatives discussed w/pt: Yes Patient agreeable to treatment: Yes Plans for Post Hospital Care: at Home
[2018-05-29] MEDS: Nicotine 14 MG PATCH.TD24 TD SCH (14:40)
--- NOTE | 2018-05-29 14:50 | Electrocardiograph Report ---
[place] [id number] Test Date: 2018-05-28 Pat Name: Venus Walsh Department: [id number] Room: [facility] Gender: F Credit Card Clerk: : 1980 Requested By: Heath Martinez Order Number: [id number] Reading MD: Coleen Proctor Measurements Intervals [place] Rate: 83 P: 37 SC: 181 QRS: 59 QRSD: 89 T: 18 QT: 387 QTc: 455 Interpretive Statements Sinus rhythm Low voltage, precordial leads Nonspecific T wave abnormality Electronically Signed On 05-29-2018 14:49:11 EDT by Coleen Proctor
[2018-05-29] MEDS ORDERED: SUMAtriptan succinate 25 MG TABLET PO PRN (16:47)
[2018-05-29] MEDS: BUPROPION HCL PO SCH ×2 (19:05→21:05)
[2018-05-29] MEDS: NALTREXONE HCL PO SCH ×2 (19:05→21:05)
[2018-05-29] MEDS: Gabapentin 300 MG CAPSULE PO SCH ×2 (19:06→21:05)
[2018-05-29] MEDS: *HR* LORazepam 1 MG TABLET PO PRN (21:06)
[2018-05-29] MEDS: Topiramate 25 MG TABLET PO SCH (21:06)
[2018-05-29] MEDS: traZODone 50 MG TABLET PO SCH (21:06)
[2018-05-30] MEDS: Nicotine 14 MG PATCH.TD24 TD SCH (09:21)
[2018-05-30] MEDS: Acetaminophen 325 MG TABLET PO PRN ×2 (09:22→19:35)
[2018-05-30] MEDS: Gabapentin 300 MG CAPSULE PO SCH ×3 (09:23→21:05)
[2018-05-30] MEDS: NALTREXONE HCL PO SCH ×3 (09:24→22:56)
[2018-05-30] MEDS: BUPROPION HCL PO SCH ×3 (09:24→22:56)
--- NOTE | 2018-05-30 11:51 | Psychiatry Progress Note ---
Date of Encounter: 05/30/18 Time of Encounter: 11:06 Subjective Interval history: Patient seen today ,case d/w treatment team , patient slept well , some improvement , she had migraine and took imitrex. as per team patient has been to ed multiple time for pain and anxiety attack. she is on taper of lorazepam , she slept well with seroquel , will dc prmn seroquel and give seroquel 50 mg hs. she has h/o panic attacks and as per her ed r/o cardiac . she at present feels better , states i have family and i still have thoughts of no will to live but it has not been that intense and is seeing improvement. states talked to her daughter and felt better. continue stabilization. Review of Systems Psychiatric: Reports: depression, anxiety, abnormal sleep pattern, hopelessness , irritability, mood swings, panic attacks Results - Vital Signs Vital Signs: Temp Pulse Resp BP Pulse Ox 98.6 F 86 16 109/78 97 05/30/18 10:01 05/30/18 10:01 05/30/18 10:01 05/30/18 10:01 05/28/18 21:05 Assessment and Plan (1) Major depress dis, severe Current visit: Yes Status: Acute Risks, benefits, side effects, alternatives discussed w/pt: Yes Patient agreeable to treatment: Yes (2) Generalized anxiety disorder Current visit: Yes Status: Acute Risks, benefits, side effects, alternatives discussed w/pt: Yes Patient agreeable to treatment: Yes Consult Discharge Plan - Plan Referrals: [facility] [Outside] - 06/06/18 1:40 pm (The above appointment is with Dr. Carias for outpatient psychiatric assessment and medication management services. Please arrive 10 minutes early to all appointments to complete the check-in process. Please bring your insurance card (or HCAP award letter) and photo ID. If you are unable to keep any scheduled appointment, 24 hour business notice of cancellation is expected. The above appointment(s) reflects first availability. You may contact the office regularly to check for cancellations that may allow you to be seen sooner. ) [facility] [Outside] (The above appointment is with . Please complete and bring the [facility] intake packet you were provided at the hospital to this appointment. When you come to your first appointment, you will be meeting with business office staff, meeting with a counselor, and developing a treatment plan. You will receive follow- up appointments for on-going services , which could include community support, mental health and substance abuse counseling, groups/partial hospitalization programming and medication assisted treatment. You will also need to bring the following to your first appointment as well: 1) proof of household income (two consecutive pay stubs, social security award letter, bank statement, statement letter from [facility], child support statement, IRS 1040 or W2 form, or a statement from the person who financially supports you stating they help provide for your basic needs), 2) proof of residency (drivers license, a piece of mail showing your address, a statement from person you live with verifying you live at their address), 3) photo ID, 4) your insurance card (if you have commercial insurance you must call to obtain a prior authorization number before you arrive to your first appointment) and 5) if you do not have insurance but have applied for Medicaid, please bring verification you have applied. The above appointment(s) reflects first availability. You may contact the office regularly to check for cancellations that may allow you to be seen sooner.) Juani Cruz [Advanced Practice Nurse] - 06/23/18 1:00 pm (The above appointment is with Juani Cruz for primary health services.) Psychiatry Exam - Constitutional Vitals: Temp Pulse Resp BP Pulse Ox 98.6 F 86 16 109/78 97 05/30/18 10:01 05/30/18 10:01 05/30/18 10:01 05/30/18 10:01 05/28/18 21:05 General appearance: age & developmentally appropriate - Musculoskeletal Gait: normal Station: other Strength & Tone: normal for patient - Psychiatric Patient Orientation: Yes Person, Yes Time, Yes Place Level of alertness: Alert Behavior: calm, cooperative Psychomotor activity: Normal Eye Contact: Maintains Eye Contact Mood Description: Depressed, Anxious Affect description: congruent with mood Speech Volume: Normal Speech pattern: coherent Language & Vocabulary: consistent with education Thought Process: Logical Thought Content: Yes Intact, Yes Guilt Perceptual Disturbances: No Auditory hallucinations, No Visual hallucinations Attention Span Ability: Capable of Focused Attention Memory Description: Grossly Intact Patient Reliability: Reliable Historian Fund of knowledge: Yes average Intelligence Estimate: Average Judgment: Limited Insight: Partial
[2018-05-30] MEDS: *HR* LORazepam 1 MG TABLET PO PRN ×2 (11:58→21:49)
[2018-05-30] MEDS: hydrOXYzine pamoate 25 MG CAPSULE PO PRN (16:22)
[2018-05-30] MEDS: traZODone 50 MG TABLET PO SCH (21:05)
[2018-05-30] MEDS: Topiramate 25 MG TABLET PO SCH (21:05)
[2018-05-31] MEDS: *HR* LORazepam 1 MG TABLET PO PRN ×3 (06:37→21:51)
[2018-05-31] MEDS: Nicotine 14 MG PATCH.TD24 TD SCH (09:05)
[2018-05-31] MEDS: Gabapentin 300 MG CAPSULE PO SCH ×3 (09:05→20:49)
[2018-05-31] MEDS: BUPROPION HCL PO SCH ×3 (10:18→22:07)
[2018-05-31] MEDS: NALTREXONE HCL PO SCH ×3 (10:18→22:07)
[2018-05-31] MEDS ORDERED: clonazePAM 0.5 MG TABLET PO PRN (11:02)
--- NOTE | 2018-05-31 11:11 | Psychiatry Progress Note ---
Date of Encounter: 05/31/18 Time of Encounter: 11:07 Subjective Interval history: Client reports she is still struggling with anxiety. Not sure she can function yet at home. Knows once her teenagers start yelling she will be unable to cope. Understands she is probably dependent on Ativan. Discussed switching to a long acting agent like Klonopin to continue wean. May make taper easier on her. Needs a counselor. Feels overwhelmed and relies on meds to feel better. Needs more coping skills. Review of Systems Constitutional: Denies: fever, chills, weakness, weight change Eyes: Denies: eye pain, vision change Ears, Nose, Throat: Denies: ear pain, throat pain, dental pain, hearing loss, congestion Cardiovascular: Denies: chest pain, palpitations, dyspnea on exertion Respiratory: Denies: cough, dyspnea, wheezes Gastrointestinal: Denies: abdominal pain, nausea, vomiting, diarrhea, constipation Musculoskeletal: Denies: joint swelling, joint pain Neurological: Denies: headache, weakness, numbness, memory loss Psychiatric: Reports: depression, anxiety, abnormal sleep pattern, hopelessness , irritability, mood swings, panic attacks Results - Vital Signs Vital Signs: Temp Pulse Resp BP Pulse Ox 98.3 F 90 16 115/82 97 05/30/18 21:00 05/30/18 21:00 05/30/18 21:00 05/30/18 21:00 05/28/18 21:05 Assessment and Plan (1) Generalized anxiety disorder Current visit: Yes Status: Acute Plan: Continue hospitalization, Close observation, Suicide Precautions per unit protocol, Encourage participation in unit milieu, Group Therapy, Monitor sleep, Monitor appetite Risks, benefits, side effects, alternatives discussed w/pt: Yes Patient agreeable to treatment: Yes (2) Major depress dis, severe Current visit: Yes Status: Acute Plan: Continue hospitalization, Close observation, Suicide Precautions per unit protocol, Encourage participation in unit milieu, Group Therapy, Monitor sleep, Monitor appetite Risks, benefits, side effects, alternatives discussed w/pt: Yes Patient agreeable to treatment: Yes Consult Discharge Plan - Plan Referrals: [facility] [Outside] - 06/06/18 1:40 pm (The above appointment is with Dr. Carias for outpatient psychiatric assessment and medication management services. Please arrive 10 minutes early to all appointments to complete the check-in process. Please bring your insurance card (or [employer] award letter) and photo ID. If you are unable to keep any scheduled appointment, 24 hour business notice of cancellation is expected. The above appointment(s) reflects first availability. You may contact the office regularly to check for cancellations that may allow you to be seen sooner. ) [facility] [Outside] (The above appointment is with . Please complete and bring the [facility] intake packet you were provided at the hospital to this appointment. When you come to your first appointment, you will be meeting with business office staff, meeting with a counselor, and developing a treatment plan. You will receive follow- up appointments for on-going services , which could include community support, mental health and substance abuse counseling, groups/partial hospitalization programming and medication assisted treatment. You will also need to bring the following to your first appointment as well: 1) proof of household income (two consecutive pay stubs, social security award letter, bank statement, statement letter from [facility], child support statement, IRS 1040 or W2 form, or a statement from the person who financially supports you stating they help provide for your basic needs), 2) proof of residency (drivers license, a piece of mail showing your address, a statement from person you live with verifying you live at their address), 3) photo ID, 4) your insurance card (if you have commercial insurance you must call to obtain a prior authorization number before you arrive to your first appointment) and 5) if you do not have insurance but have applied for Medicaid, please bring verification you have applied. The above appointment(s) reflects first availability. You may contact the office regularly to check for cancellations that may allow you to be seen sooner.) Juani Cruz [Advanced Practice Nurse] - 06/23/18 1:00 pm (The above appointment is with Juani Cruz for primary health services.) Psychiatry Exam - Constitutional Vitals: Temp Pulse Resp BP Pulse Ox 98.3 F 90 16 115/82 97 05/30/18 21:00 05/30/18 21:00 05/30/18 21:00 05/30/18 21:00 05/28/18 21:05 General appearance: age & developmentally appropriate, well-groomed, well- nourished - Musculoskeletal Gait: normal Station: relaxed Strength & Tone: normal for patient - Psychiatric Patient Orientation: Yes Person, Yes Time, Yes Place Level of alertness: Alert Behavior: calm, cooperative Psychomotor activity: Normal Eye Contact: Maintains Eye Contact Mood Description: Anxious Affect description: congruent with mood Speech Volume: Normal Speech pattern: normal rate, normal rhythm, normal tone, fluent, spontaneous Language & Vocabulary: consistent with education Thought Process: Linear Thought Content: No Suicidal ideation, No Homicidal ideation, No Overt delusions Perceptual Disturbances: No Auditory hallucinations, No Visual hallucinations Attention Span Ability: Capable of Focused Attention Memory Description: Grossly Intact Patient Reliability: Reliable Historian Fund of knowledge: Yes abstraction ability, Yes aware of current events Intelligence Estimate: Average Judgment: Limited Insight: Partial
[2018-05-31] MEDS: hydrOXYzine pamoate 25 MG CAPSULE PO PRN ×2 (17:12→20:51)
[2018-05-31] MEDS: traZODone 50 MG TABLET PO SCH (20:49)
[2018-05-31] MEDS: Acetaminophen 325 MG TABLET PO PRN (20:51)
[2018-05-31] MEDS: Topiramate 25 MG TABLET PO SCH (20:51)
[2018-06-01] MEDS: BUPROPION HCL PO SCH (09:04)
[2018-06-01] MEDS: Nicotine 14 MG PATCH.TD24 TD SCH (09:04)
[2018-06-01] MEDS: NALTREXONE HCL PO SCH (09:04)
[2018-06-01] MEDS: Gabapentin 300 MG CAPSULE PO SCH (09:04)
[2018-06-01 10:11] VITALS: BP 115/84
--- NOTE | 2018-06-01 11:00 | Discharge Summary ---
Date of Encounter: 06/01/18 Time of Encounter: 11:00 Diagnosis - Discharge Diagnosis (1) Generalized anxiety disorder Status: Acute (2) Major depress dis, severe Status: Acute Medications - Discharge Medications Prescriptions: Quetiapine Fumarate [Seroquel] 50 mg PO HS #30 tablet Atorvastatin Calcium 80 mg PO HS 09/23/17 [History] Dicyclomine [Bentyl] 20 mg PO QID PRN 09/23/17 [History] Gabapentin [Neurontin] 600 mg PO TID 09/23/17 [History] Omeprazole [PriLOSEC] 20 mg PO DAILY 09/23/17 [History] Paroxetine HCl [Paxil] 40 mg PO DAILY 09/23/17 [History] SUMAtriptan succinate [Imitrex] 25 mg PO Q2H PRN 09/23/17 [History] Topiramate [Topamax] 50 mg PO HS 09/23/17 [History] Albuterol Sulfate [Albuterol Inhaler] 2 puff IH Q4HR #1 unit 02/05/18 [Rx] Naltrexone HCl/Bupropion HCl [Contrave ER 8-90 mg Tablet] 1 tab PO TID 05/29/18 [History] hydrOXYzine pamoate [HydrOXYzine Pamoate] 25 mg PO QID PRN 05/29/18 [History] traZODone [TraZODone] 50 mg PO HS 05/29/18 [History] Quetiapine Fumarate [Seroquel] 50 mg PO HS #30 tablet 06/01/18 [Rx] 3 Allergy/AdvReac Type Severity Reaction Status Date / Time sulfamethoxazole Allergy Swelling Verified 09/23/17 07:01 [From Bactrim] of Lip/Tongue/Throat trimethoprim [From Bactrim] Allergy Swelling Verified 09/23/17 07:01 of Lip/Tongue/Throat Provider Date of admission: 05/29/18 12:08 Primary care physician: PCP NONE Discharging clinician: Isis Hung Psychiatry Exam - Constitutional Vitals: Temp Pulse Resp BP Pulse Ox 98.4 F 90 16 115/84 97 06/01/18 09:00 06/01/18 09:00 06/01/18 09:00 06/01/18 09:00 05/28/18 21:05 General appearance: age & developmentally appropriate, well-groomed, well- nourished - Musculoskeletal Gait: normal Station: relaxed Strength & Tone: normal for patient - Psychiatric Patient Orientation: Yes Person, Yes Time, Yes Place Level of alertness: Alert Behavior: calm, cooperative Psychomotor activity: Normal Eye Contact: Maintains Eye Contact Mood Description: Euthymic/stable Affect description: congruent with mood, full range Speech Volume: Normal Speech pattern: normal rate, normal rhythm, normal tone, fluent, spontaneous Language & Vocabulary: consistent with education Thought Process: Linear, Goal Oriented Thought Content: No Suicidal ideation, No Homicidal ideation, No Overt delusions Perceptual Disturbances: No Auditory hallucinations, No Visual hallucinations Attention Span Ability: Capable of Focused Attention Memory Description: Grossly Intact Patient Reliability: Reliable Historian Fund of knowledge: Yes abstraction ability, Yes aware of current events Intelligence Estimate: Average Judgment: Fair Insight: Partial Hospital Course Hospital course: Ms. Walhs is a 38 year old female who was admitted secondary to feeling overwhelmed at home and vague SI. Client weaning off Ativan due to a missed pill count at provider's office. Very focused on her anxiety while inpatient. Switched over to Klonopin with positive results. Discussed how this is a longer acting agent and easier to wean off of. Down to 0.5mg BID at time of discharge and doing well at that dose. Given a script for a 30 day supply to get through next provider's appointment. Today client is upbeat. Smiling, pleasant. Reports she slept well with no nightmares which is a change for her. Thinks she can now cope with her three teenagers. Denying SI and has been for a while. - Time Spent with Patient Total time spent providing and/or coordinating discharge services: Assessment and Plan - Patient/Caregiver Discharge Instructions Activity: resume usual activities as tolerated Diet: regular diet - Follow up Plan Follow up with: [facility] [Outside] - 06/06/18 1:40 pm (The above appointment is with Dr. Carias for outpatient psychiatric assessment and medication management services. Please arrive 10 minutes early to all appointments to complete the check-in process. Please bring your insurance card (or [facility]) and photo ID. If you are unable to keep any scheduled appointment, 24 hour business notice of cancellation is expected. The above appointment(s) reflects first availability. You may contact the office regularly to check for cancellations that may allow you to be seen sooner. ) [place] [facility] [Outside] (The above appointment is with . Please complete and bring the [facility] intake packet you were provided at the hospital to this appointment. When you come to your first appointment, you will be meeting with business office staff, meeting with a counselor, and developing a treatment plan. You will receive follow- up appointments for on-going services , which could include community support, mental health and substance abuse counseling, groups/partial hospitalization programming and medication assisted treatment. You will also need to bring the following to your first appointment as well: 1) proof of household income (two consecutive pay stubs, social security award letter, bank statement, statement letter from [facility], child support statement, IRS 1040 or W2 form, or a statement from the person who financially supports you stating they help provide for your basic needs), 2) proof of residency (drivers license, a piece of mail showing your address, a statement from person you live with verifying you live at their address), 3) photo ID, 4) your insurance card (if you have commercial insurance you must call to obtain a prior authorization number before you arrive to your first appointment) and 5) if you do not have insurance but have applied for Medicaid, please bring verification you have applied. The above appointment(s) reflects first availability. You may contact the office regularly to check for cancellations that may allow you to be seen sooner.) Juani Cruz [Advanced Practice Nurse] - 06/23/18 1:00 pm (The above appointment is with Juani Cruz for primary health services.) Functional capacity at discharge: independent ambulation Overall status at discharge: Stable Disposition: Home, Self-Care Quality - Multiple Antipsychotics Patient discharged on 2 or more antipsychotic medications: No Procedures - Procedures Procedures: Medication Management, Crisis Stabilization, Supportive Therapy, Group Therapy
== END 2018-06-01 13:05 | disposition home or self-care (01) | DRG 885 ==
LOC: EMEROOARM 19:53 → 1ANU 19:53
PROVIDERS: ADMIT Psychiatry & Neurology Psychiatry; ATTEND Psychiatry & Neurology Psychiatry